=== PATIENT | female | born 2005 | race Hispanic/Latino ===

== ENCOUNTER 2024-11-03 19:11 | Emergency (ER) | payer SELFPAY ==
[2024-11-03] MEDS ORDERED: Ketorolac Tromethamine 30 MG (1 mL) VIAL ONE (19:42)
[2024-11-03] MEDS ORDERED: Famotidine/PF 20 mg/2ml Vial ONE (19:43)
[2024-11-03] MEDS ORDERED: Pantoprazole 40 MG VIAL ONE (19:43)
[2024-11-03 20:30] LABS: BHCG - Serum Negative (NEGATIVE); Pregs Control Background? CLEAR/WHITE (CLR/WHITE); Pregs Control Bar Appear? YES (CONTROL BAR)
== END 2024-11-03 21:23 | disposition home or self-care (01) ==
LOC: CSHERS 19:11
DX: R79.89 Other specified abnormal findings of blood chemistry (principal); K80.20 Calculus of gallbladder without cholecystitis without obstruction; Z55.6 Problems related to health literacy
CPT/HCPCS: 36415; 76705; 84703; 96361; 96374; 96375; J1308; J1885; J2470